=== PATIENT | female | born 1960 | race Caucasian/White ===

== ENCOUNTER 2020-04-06 11:58 | Emergency (ER) | payer BC ==
[~2020-04-06] VITALS: Ht 165.1 cm; Wt 88.5 kg
[2020-04-06] MEDS ORDERED: LISINOPRIL5 MG PO (12:15)
[2020-04-06] MEDS ORDERED: AMBIEN5 MG (12:15)
--- NOTE | 2020-04-06 17:45 | EKG ---
[facility] [address] [facility] [place] [address] Signed Normal sinus rhythm with sinus arrhythmia Minimal voltage criteria for LVH, may be normal variant Borderline ECG No previous ECGs available Confirmed by BUCKY FRANCIS MD ([id number]) on 04/06/2020 5:45:31 PM Electronically Signed By: BUCKY FRANCIS MD 04/06/20 1745 PATIENT NAME: ARIADNA GARRETT GUICHO Electrocardiogram DATE OF : 58 PHYSICIAN: BUCKY FRANCIS MD REPORT #: [id number] REPORT IS CONFIDENTIAL AND NOT TO BE RELEASED WITHOUT AUTHORIZATION
== END 2020-04-06 15:51 | disposition home or self-care (01) ==
LOC: ED 11:58
DX: R42 Dizziness and giddiness (principal); I10 Essential (primary) hypertension; Z88.8 Allergy status to other drugs, medicaments and biological substances; Z79.899 Other long term (current) drug therapy
CPT/HCPCS: 70450; 80053; 85025; 93005; 93010; 99284-25

== ENCOUNTER 2022-01-04 14:58 | Emergency (ER) | payer OTHER ==
[~2022-01-04] VITALS: Ht 152.4 cm; Wt 88.5 kg
[~2022-01-04 14:58] MED LIST: AMBIEN5 MG PO; LISINOPRIL5 MG PO
--- OUTSIDE RECORDS SUMMARY | 2022-01-04 15:00 | XMS ---
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 E.[place] VISIT COUNT (12 MO.) 1 [facility] TOTAL 1 NOTE: Visits indicate total known visits. ED/UCC VISIT TRACKING (12 MO.) 01/04/2022 14:58 [facility] OR TYPE: Emergency COMPLAINT: - EXTREMITY PAIN/INJURY INPATIENT VISIT TRACKING (12 MO.) No inpatient visits to display in this time frame [id number]
[2022-01-04] MEDS ORDERED: HYDROCODON-ACE1 EA10 PO (19:31)
[2022-01-06] MEDS ORDERED: LEXAPRO20 MG PO (11:20)
[2022-01-10] MEDS ORDERED: DILAUDID2 MG PO (10:44)
== END 2022-01-04 20:20 | disposition home or self-care (01) ==
LOC: ED 14:58
DX: S52.502A Unspecified fracture of the lower end of left radius, initial encounter for closed fracture (principal); S22.31XA Fracture of one rib, right side, initial encounter for closed fracture; I10 Essential (primary) hypertension; V43.52XA Car driver injured in collision with other type car in traffic accident, initial encounter; Z88.8 Allergy status to other drugs, medicaments and biological substances; Z79.899 Other long term (current) drug therapy
CPT/HCPCS: 25605; 36415; 71045; 71250; 73080; 73090; 73110; 74176; 80053; 81001; 83690; 84484; 85025; 85060; 85610; 85730; 99284-25; A9270; J2270; J7030

== ENCOUNTER 2022-01-06 16:49 | Observation (INO) | payer OTHER ==
[~2022-01-06] VITALS: Ht 152.4 cm; Wt 89.2 kg
[~2022-01-06 16:49] MED LIST changes: +HYDROCODON-ACE1 EA10 PO; +LEXAPRO20 MG PO
--- OUTSIDE RECORDS SUMMARY | 2022-01-06 16:52 | XMS ---
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 Josh VISIT COUNT (12 MO.) 2 [facility] TOTAL 2 NOTE: Visits indicate total known visits. ED/UCC VISIT TRACKING (12 MO.) 01/06/2022 16:50 [facility] OR TYPE: Emergency COMPLAINT: - CHEST PAIN 01/04/2022 14:[address] [facility] OR TYPE: Emergency COMPLAINT: - EXTREMITY PAIN/INJURY INPATIENT VISIT TRACKING (12 MO.) No inpatient visits to display in this time frame [id number]
[2022-01-06] MEDS ORDERED: LISINOPRIL-HCT1 EACH PO (17:34)
[2022-01-06] MEDS ORDERED: NORTRIPTYLINE H25 MG PO (17:34)
--- NOTE | 2022-01-06 22:45 | NUR ---
PT HAS ARRIVED TO THE FLOOR VIA STRETCHER, SBA PIOVT TO MEDICAL BED, LEFT ARM BRACE IS IN PLACE, VS AND BED WEIGHT TAKEN, WARM BLANKETS PROVIDED, RN IN FOR ASSESSMENT, BEDSIDE ITEMS AND CALL LIGHT IN REACH, NO FURTHER NEEDS AT THIS TIME
--- NOTE | 2022-01-06 22:45 | NUR ---
pt arrived from ed on stretcher, able to stand pivot to [facility] bed. left arm remains in sling, pt sensitive to position changes and reports increased pain from sternal fx when laying flat, improved when sitting upright. admission complete, pt oriented to room. iv fluids infusing as directed and iv site flushes easily. primary rn remains in room.
--- NOTE | 2022-01-06 23:30 | NUR ---
UP TO BR, SLOW, 2PA, L ARM IN SLING, IVF INFUSING, VOIDED QS CLEAR YELLOW URINE. BACK TO BED WITH ASSIST. CONCERNED ABOUT ANGLICAN UNDERGARMENTS. REASSURED. MEDICATED WITH MORPHINE 4MG PER 10/10 R RIB AND L ARM PAIN. RECEIVED AMBIEN SCHEDULED, WILL WAIT ON PAMELOR, ALERT AND ORIENTED IVF INFUSING L AC, SLIGHT EDEMA LANKLE, PT STATED SHE HAD LYMPHEDEMA, SCDS IN PLACE. PT AWARE OF NPO AFTER MIDNIGHT
--- NOTE | 2022-01-07 01:33 | NUR ---
Used call light, up to br, voided, QS clear yellow urine. IVf infusing w/o problems, c/o mild L arm pain, arm in sling, back to bed, tolerated well, 1PA, c/o insomnia, ambien given at this time with small amount of water, Pt aware of NPO status. has been NPO since midnight. L arm elevated in pillows.
--- NOTE | 2022-01-07 04:16 | NUR ---
pt used call light, up to br 2 PA, voided, back to bed, sling L arm in place, tolerated fait, c/o 8/10 pain, medicated with Morphine 4mg IV. ice to L ches L arm, sling in place, scds in place, IVF infusing w/o problems,
--- NOTE | 2022-01-07 05:45 | NUR ---
pt on room air, NPO since midnight, L arm sling in place, ice to L chest and L arm. 1-2PA when standing up to Br, voiding QS, tolerated fair, has been medicated with Morphine 4mg IV with good pain relief. edema to L LE chronic SCDS in place. uses call light, alert and oriented. pleasant and cooperative
--- NOTE | 2022-01-07 06:39 | NUR ---
DR DOMINGUEZ IN TO SEE PT. PT WAS SCHEDULED TO HAVE OUTPT SURGERY PRIOR TO ADMIT.
--- NOTE | 2022-01-07 06:58 | NUR ---
C/O 6/10 L ARM AND R SIDED PAIN, MEDICATED WITH MORPHINE 4MG iv
--- NOTE | 2022-01-07 07:00 | NUR ---
bedside report from janice, dr nava was here - plan for sx today.
--- NOTE | 2022-01-07 08:16 | NUR ---
PT GIVEN PO TYLENOL FOR C/O BREAKTHROUGH PAIN AT [place], ASSESSMENT COMPLETE - PT NPO CMS ON LEFT HAND WNL ARM IN SLING - LET PT KNOW I WOULD BE CALLING TO CLARIFY PLAN OF CARE FOR TODAY.
--- NOTE | 2022-01-07 08:18 | NUR ---
PATIENT IN BED FOR MEAL, VISITING WITH SPOUSE. THE SPOUSE HELPED PT TO RESTROOM. AM CARE COMPLETED. REQUESTING PAIN MEDICINE, NURSE NOTIFIED. PT HAS NO OTHER NEEDS AT THIS TIME. CALL LIGTH WITHIN REACH.
--- NOTE | 2022-01-07 08:40 | NUR ---
RN CALLED DR DOMINGUEZ - HE IS NOW AWARE OF HER CONCERNS FOR HER PLAN OF CARE AND QUESTIONS ABOUT GOING HOME AND COMING BACK OUT PT. HE SAID ADVANCE DIET NOW AND HE WILL BE IN NEXT AFTER SURGERY TO TALK WITH HER. 0845: RN IN TO DISCUSS DR DOMINGUEZ PLAN. DR ROSALES IN ROOM - ADVISED PT AND DR ROSALES OF DR DOMINGUEZ PLAN TO NOT DO SURGERY TODAY, AND HE WOULD BE IN TO TALK TO THEM - DR ROSALES WILL CONNECT WITH ANGELICA AND PT WANTS TO WAIT TO EAT/DRINK UNTIL SHE TALKS TO DR DOMINGUEZ THIS AM. MACHINE SET UP OPERATOR NOTIFIED OF CHANGES AND PT REQUESTS.
--- NOTE | 2022-01-07 09:33 | NUR ---
PATIENT BACK IN BED AFTER USING RESTROOM. VITAL SIGNS AND I/O'S COMPLETED. PT HAS NO OTHER NEEDS AT THIS TIME. CALL LIGHT WITHIN REACH.
[2022-01-07] MEDS ORDERED: TRANSDERM-SCOP1 EACH TD (10:03)
--- NOTE | 2022-01-07 10:03 | NUR ---
MED REC COMPLETE
--- NOTE | 2022-01-07 10:10 | NUR ---
THIS RN JUST SPOKE WITH PT TO ORDER FOOD AND COORDINATE PLAN OF CARE FOR THE DAY. SHE IS HAPPY WITH SPEAKING RECENTLY WITH DR. DOMINGUEZ AND PLAN TO DC TOMORROW AFTER LABS AND RETURN ON MONDAY FOR OUTPT SX IF LABS ABD PAIN ARE WNL. GRILLED TURKEY CHE[employer] SALAD AND PEPSI ORDERD. PT DENIES OTHER NEEDS. HAPPY WITH PLAN COMPROMISE.
--- NOTE | 2022-01-07 10:46 | NUR ---
AFTER THIS RN MET WITH PT TO ASSESS PAIN AND GIVE MORE MORPHINE PLANNED EARLIER - PT STATED THAT DR DOMINGUEZ VERBALLY TOLD HER SHE WOULD NO LONGER BE TAKING TYLENOL AND MORPINE - NO NEW ORDERS - THIS RN PLACED CALL TO DR. DOMINGUEZ AND ADDRESSED PT CONCERN - NEW VERBAL ORDERS TO GIVE DILAUDID PO PRIMARY PAIN MED AND DC TYLENOL. UPDATED THAT PT WAS EATING WELL.
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
--- NOTE | 2022-01-07 13:40 | NUR ---
PT SORE FROM MOVEMENT - IV MS GIVEN
--- NOTE | 2022-01-07 14:50 | NUR ---
PATIENT IN BED VISITING WITH FAMILY MEMBERS. VITALS AND I/O'S COMPLETED. PT HAS NO OTHER NEEDS AT THIS TIME. CALL LIGHT WITHIN REACH.
--- NOTE | 2022-01-07 15:20 | NUR ---
CALL LIGHT ANSWERED. PT BACK TO BED FROM BATHROOM. PT L. ARM SUPPORTED W PILLOW AND SLING. WARM BLANKET PUT ON PTS FEET. NO FURTHER NEEDS. FAMILY IN ROOM. CALL LIGHT WITHIN REACH.
--- NOTE | 2022-01-07 15:24 | NUR ---
PT AMB TO BR WITH RN TO VOID - REPORT THAT SHE IS FEELING BETTER AFTER MS IV, SISTERS ARE HERE TO VISIT - NEW ICE PACK TO LEFT ARM - [facility] WNL.
--- NOTE | 2022-01-07 17:22 | NUR ---
REPORT RECEIVED FROM ABDULLAHI RN AND PT. CARE RESUMED.
--- NOTE | 2022-01-07 17:53 | NUR ---
PATIENT LAYING IN BED, VITALS AND I/O'S COMPLETED. PT HAS NO OTHER NEEDS AT THIS TIME. CALL LIGHT WITHIN REACH.
--- NOTE | 2022-01-07 17:53 | NUR ---
ROUNDING ON PT. SHE C/O STERNAL PAIN. ADMIN PO DILAUDID. DISCUSSED PAIN MANAGEMENT.
--- NOTE | 2022-01-07 19:00 | NUR ---
BEDSIDE HANDOFF REPORT RECEIVED FROM DAY SHIFT RN. PT RATING PAIN 9/10, REQUESTING PAIN MEDICATION, AMR RN TO GIVE MORPHINE. PT DENIES OTHER NEEDS AT THIS TIME.
--- NOTE | 2022-01-07 19:34 | NUR ---
PT RECEIVED AMBIEN LAST NIGHT, NO DOSE AVAILABLE FOR THIS EVENING, DISCUSS WITH DR. ROSALES, TELEPHONE ORDER FOR DOSE FOR TONIGHT.
--- NOTE | 2022-01-07 20:09 | NUR ---
PT WITH COMPLAINT OF PAIN IN LEFT WRIST, STATES THE CAST FEELS LIKE ITS SQUEEZING IN ONE AREA. CMS INTACT, CAP REFILL 2 SECONDS. DIMA BANDAGE REMOVED, ARM ELEVATED ON SLING, ICE PACK IN PLACE. PT REQUESTING PAIN MEDICATION WHEN AVAILABLE. PT DENIES OTHER NEEDS AT THIS TIME.
--- NOTE | 2022-01-07 20:43 | NUR ---
PT UTILIZES CALL LIGHT, REPORTS PAIN AT IV SITE. IV INFUSION STOPPED. IV FLUSHED WITH 10 ML NS, WNL, BRISK BLOOD RETURN NOTED. PT DENIES PAIN DURING FLUSH. REDNESS NOTED ALONG IV DRESSING. PT DENEIS ADHESIVE ALLERGY. COBAN SECURING IV SITE REMOVED. PT POINTS TO AREA OF STABBING AT HUB OF IV. 2X2 GAUZE PLACED UNDER WINGS/HUB OF IV. PT STATES THIS RELIEVES DISCOMFORT. PT UP TO BATHROOM AND BACK TO BED WITH SBA. PT'S FAMILY ARRIVES AT BEDSIDE WITH DINNER FOR PT. ICE CHIPS PROVIDED PER PT REQUEST. FURTHER NEEDS DENIED AT THIS TIME. CALL LIGHT IN REACH.
--- NOTE | 2022-01-07 21:30 | NUR ---
PT RESTING IN BED, FAMILY IN ROOM. PT ON ROOM AIR, LUNG SOUNDS CLEAR, DENIES SOB. PT RATES PAIN 7/10, GIVEN 1MG PO DILAUDID. PT DENIES NAUSEA, BOWEL TONES ACTIVE. IV FLUIDS INFUSING NS AT 150ML/HR. PT LEFT ARM IN SPLINT, DIMA BANDAGE REAPPLIED. VSS. PT ASSISTED TO BATHROOM AND THEN BACK TO BED, ARM ELEVATED ON PILLOW, ICE PACK APPLIED. PT DENIES OTHER NEEDS AT THIS TIME.
--- NOTE | 2022-01-07 23:43 | NUR ---
PT ASSISTED TO BATHROOM, SBA.
--- NOTE | 2022-01-08 03:33 | NUR ---
PT WALKING IN [place]OMAS WITH ELEVATOR OPERATOR SERVICE.
--- NOTE | 2022-01-08 03:53 | NUR ---
PT COMPLETED WALK IN [place]OMAS, PT REPORTING PAIN 9/10 TO STERNUM AND RIBS, REQUESTING PAIN MEDICATION. GIVEN 4MG IV MORPHINE. PT DENIES OTHER NEEDS AT THIS TIME.
--- NOTE | 2022-01-08 07:20 | NUR ---
RECIEVED SHIFT REPORT. PT AWAKE IN BED REQUESTING PAIN MEDS. CALL LIGHT WITHIN REACH.
--- NOTE | 2022-01-08 08:00 | NUR ---
MORNING ASSESSMENT COMPLETE. PT COMPLAINS OF PAIN 9/10 IN LEFT ARM AND STERNUM. PRN DILAUDID ADMINISTERED PER EMAR. LEFT ARM ELEVATED, WRAPPED IN DIMA WRAP. CMS INTACT. ICE APPLIED TO LEFT ARM AND STERNUM. PT LUNGS CLEAR. HR REGULAR. LLE TRACE EDEMA NOTED. SCDS IN PLACE. IVF RUNNING AT 150 ML/HR PER EMAR. DENIES FURTHER NEEDS AT THIS TIME. CALL LIGHT WITHIN REACH.
--- NOTE | 2022-01-08 08:36 | NUR ---
DR DOMINGUEZ CALLED ON UPDATE ON LABS. LABS GIVEN. NO NEW ORDERS AT THIS TIME.
--- NOTE | 2022-01-08 08:49 | NUR ---
PATIENT IN BED FOR MEAL. AM CARE COMPLETED. PT HAD COMPLAINTS OF PAIN, NURSE NOTIFIED, CALL LIGHT WITHIN REACH.
--- NOTE | 2022-01-08 09:30 | NUR ---
PT LAYING IN BED. AT BEDSIDE. CALL LIGHT WITHIN REACH.
--- NOTE | 2022-01-08 10:20 | NUR ---
PATIENT IN BED AFTER MEAL AND SHOWER. VITALS AND I/O'S COMPLETED. PT HAS NO OTHER NEEDS AT THIS TIME. CALL LIGHT WITHIN REACH.
--- NOTE | 2022-01-08 11:45 | NUR ---
PT IN BATHROOM, IN TO ASSIST. PT STATED PAIN LEVEL 8/10 AND REQUESTED IF PAIN MEDICATIONS. PRN DILAUDID GIVEN PER EMAR. DENIES FURTHER NEEDS AT THIS TIME.
--- NOTE | 2022-01-09 17:15 | EKG ---
[facility] [address] [place] [address] Signed Normal sinus rhythm Minimal voltage criteria for LVH, may be normal variant ( R in aVL ) Inferior infarct , age undetermined Abnormal ECG When compared with ECG of 06-APR-2020 13:19, Inferior infarct is now present Confirmed by Ebonie Rosales MD () on 01/09/2022 5:15:43 PM Electronically Signed By: EBONIE ROSALES MD 01/09/22 1715 PATIENT NAME: ARIADNA GARRETT Electrocardiogram DATE OF : 58 PHYSICIAN: EBONIE ROSALES MD REPORT #: [id number] REPORT IS CONFIDENTIAL AND NOT TO BE RELEASED WITHOUT AUTHORIZATION
== END 2022-01-08 12:40 | disposition home or self-care (01) ==
LOC: ED 16:49 → MS 16:51
PROVIDERS: ADMIT Family Medicine; ATTEND Family Medicine
DX: N17.9 Acute kidney failure, unspecified (principal); S62.102A Fracture of unspecified carpal bone, left wrist, initial encounter for closed fracture; S22.31XA Fracture of one rib, right side, initial encounter for closed fracture; S22.20XA Unspecified fracture of sternum, initial encounter for closed fracture; E86.0 Dehydration; I10 Essential (primary) hypertension; J98.11 Atelectasis; R42 Dizziness and giddiness; R79.89 Other specified abnormal findings of blood chemistry; G47.00 Insomnia, unspecified; V49.9XXA Car occupant (driver) (passenger) injured in unspecified traffic accident, initial encounter; Z88.5 Allergy status to narcotic agent; Z90.49 Acquired absence of other specified parts of digestive tract; Z91.040 Latex allergy status
CPT/HCPCS: 36415; 71045; 71120; 80048; 80053; 82553; 83735; 84484; 85025; 93005; 93010; 96374; 96376; 99285-25; A9270; C9803; G0378; J2270; J7030

== ENCOUNTER 2022-01-10 10:07 | Day surgery (SDC) | payer OTHER ==
--- NOTE | 2022-01-06 11:21 | NUR ---
09:00 PHONE CALL TO PATIENT DUE TO SHE MISSED COVID TEST AND PRE-ADMIT APPOINTMANT. TALKED WITH DUE TO PT HAD A BAD NIGHT WITH PAIN AND MEDICATIONS. EXPLAINED THAT SHE COULD COME AT 7AM FOR COVID SCREENING ON ARRIVAL FOR SURGERY AND THAT I WOULD TALK WITH DR DOMINGUEZ STAFF ABOUT PAIN MEDICATIONS AND SEE IF WE COULD GET THAT CHANGED. 09:[address] DOMINGUEZ OFFICE LEFT MESSAGE WITH OFFICE NURSE ABOUT ISSUES WITH PAIN MEDICATIONS 11:10 PHONE CALL TO PATIENT, SHE ANSWERED AND WE COMPLETED PRE-ADMIT AND THEN ASKED IF DR DOMINGUEZ OFFICE HAS GOTTEN IN TOUCH WITH THEM AND THEY HAD. REMINDED PATIENT NOT TO EAT OR DRINK AFTER MIDNIGHT AND THAT SHE WOULD NEED TO BE AT THE HOSPITAL AT 7:00AM AND WOULD HAVE HER COVID SCREENING COMPLETED THEN.
--- NOTE | 2022-01-06 11:26 | NUR ---
PT ALSO HAD COVID IN August WITH COLD LIKE S/S TOOK THE 5 DAYS OF MEDICATION AND HAS HAD NO PROBLEMS
[~2022-01-10] VITALS: Ht 152.4 cm; Wt 88.5 kg
[~2022-01-10 10:07] MED LIST changes: +LISINOPRIL-HCT1 EACH PO; +NORTRIPTYLINE H25 MG PO; +TRANSDERM-SCOP1 EACH TD
[2022-01-10] MEDS ORDERED: DILAUDID2 MG PO ×2 (10:44)
--- NOTE | 2022-01-10 15:20 | NUR ---
01/10/22 1520 Lori Ardon 1509- PT ARRIVES TO PACU TALKING. PT REPORTS NO PAIN OR NAUSEA. RESP EVEN AND UNLABORED. OXYGEN SAT MID 90'S ON 6L VIA MASK. PT ENCOURAGED TO COUGH AND TAKE DEEP BREATHS BY MECHANICAL LEAD. PT IS ABLE TO DO THIS. PT'S LEFT FOREARM ELEVATED AND ICE PACK APPLIED. 1516- PT PLACED ON AN EAR PROBE FOR OXYGEN SAT THE PT HAS DARK FINGER NAIL KENYAN ON 1519- OXYGEN TITRATED OFF.
--- NOTE | 2022-01-10 15:50 | NUR ---
PATIENT BACK TO ROOM 4 FROM PACU ON RA. RECEIVED REPORT FROM POLINA GOYAL. RESP EVEN AND UNLABORED. RATES PAIN 0/10 AND DENIES NAUSEA. DRESSING CLEAN, DRY, AND INTACT. LEFT ARM IN SLING WITH ICE PACK IN PLACE. PATIENT IS EATING ICE CHIPS. PROVIDED PATIENT WITH PUDDING. AT BEDSIDE. CALL LIGHT WITHIN REACH.
--- NOTE | 2022-01-10 16:50 | NUR ---
1650-PATIENT LAYING IN BED AWAKE. RESP EVEN AND UNLABORED. DENIES PAIN AND NAUSEA. DRESSING CLEAN, DRY, AND INTACT. ARM IN SLING AND ICE PACK IN PLACE. IN ROOM. PATIENT READY TO GO HOME AND WILL GET DRESSED.
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
== END 2022-01-10 17:10 | disposition home or self-care (01) ==
LOC: DS 10:07
PROVIDERS: ATTEND Specialist
PROC: 0PS Upper Bones, Reposition (ICD-10-PCS; principal; 2022-01-10 13:30)
DX: S52.552A Other extraarticular fracture of lower end of left radius, initial encounter for closed fracture (principal); M85.80 Other specified disorders of bone density and structure, unspecified site; I10 Essential (primary) hypertension; V89.2XXA Person injured in unspecified motor-vehicle accident, traffic, initial encounter; Z20.822 Contact with and (suspected) exposure to COVID-19
CPT/HCPCS: 36415; 64417; 73100; 76942; 80053; C1713; C9803; J0690; J1100; J2001; J2250; J2405; J2704; J2795; J3010; U0003

== ENCOUNTER 2022-01-29 11:23 | Emergency (ER) | payer OTHER ==
[~2022-01-29] VITALS: Ht 167.6 cm; Wt 91.2 kg
[~2022-01-29 11:23] MED LIST changes: +DILAUDID2 MG PO
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
== END 2022-01-29 13:03 | disposition home or self-care (01) ==
LOC: ED 11:23
DX: T84.038A Mechanical loosening of other internal prosthetic joint, initial encounter (principal); Z88.5 Allergy status to narcotic agent; Z88.8 Allergy status to other drugs, medicaments and biological substances; Z91.040 Latex allergy status; Z79.899 Other long term (current) drug therapy; X58.XXXA Exposure to other specified factors, initial encounter
CPT/HCPCS: 99283

== ENCOUNTER 2022-07-03 17:56 | Emergency (ER) | payer OTHER ==
[~2022-07-03] VITALS: Ht 162.6 cm; Wt 89.4 kg
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
[2022-07-03] MEDS ORDERED: HYDROCODON-ACE1 EA10 PO (19:46)
[2022-07-03] MEDS ORDERED: PREDNISONE20 MG PO (19:46)
== END 2022-07-03 20:10 | disposition home or self-care (01) ==
LOC: ED 17:56
DX: L51.9 Erythema multiforme, unspecified (principal); I10 Essential (primary) hypertension; E11.9 Type 2 diabetes mellitus without complications; Z91.040 Latex allergy status; Z88.8 Allergy status to other drugs, medicaments and biological substances; Z79.899 Other long term (current) drug therapy
CPT/HCPCS: 36415; 51701; 80053; 81001; 81003; 85025; 99283-25; A9270; J1200; J2930

== ENCOUNTER 2022-07-04 21:21 | Emergency (ER) | payer OTHER ==
[~2022-07-04] VITALS: Ht 162.6 cm; Wt 89.0 kg
[~2022-07-04 21:21] MED LIST changes: +PREDNISONE20 MG PO
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
== END 2022-07-04 22:08 | disposition home or self-care (01) ==
LOC: ED 21:21
DX: L98.499 Non-pressure chronic ulcer of skin of other sites with unspecified severity (principal); I10 Essential (primary) hypertension; E11.9 Type 2 diabetes mellitus without complications; Z88.2 Allergy status to sulfonamides; Z88.8 Allergy status to other drugs, medicaments and biological substances; Z88.1 Allergy status to other antibiotic agents; Z91.040 Latex allergy status; Z79.899 Other long term (current) drug therapy; Z79.52 Long term (current) use of systemic steroids
CPT/HCPCS: 99283

== ENCOUNTER 2023-02-01 13:07 | Emergency (ER) | payer OTHER ==
[~2023-02-01] VITALS: Ht 162.6 cm; Wt 85.1 kg
--- OUTSIDE RECORDS SUMMARY | 2023-02-01 13:10 | XMS ---
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 PHONE: Unknown Rachel has no Care Guidelines for this patient. Josh VISIT COUNT (12 MO.) [facility] TOTAL 3 NOTE: Visits indicate total known visits. 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 [place] TYPE: Emergency COMPLAINT: - ALLERGIC REACTION DIAGNOSES: - Allergy status to other drugs, medicaments and biological substances - Erythema multiforme, unspecified - Essential (primary) hypertension - Latex allergy status - Other mcc (current) drug therapy - Rash and other nonspecific skin eruption - Type 2 diabetes mellitus without complications INPATIENT VISIT TRACKING (12 MO.) No inpatient visits to display in this time frame [email or web address]
[2023-02-01] MEDS ORDERED: JARDIANCE10 MG PO (13:39)
[2023-02-01] MEDS ORDERED: AMLODIPINE BESYL5 MG PO (13:39)
[2023-02-01] MEDS ORDERED: VITAMIN D21250 MCG PO (13:39)
[2023-02-01] MEDS ORDERED: LISINOPRIL20 MG PO (13:39)
[2023-02-01] MEDS ORDERED: GABAPENTIN100 MG PO (16:30)
[2023-02-01 17:11] VITALS: BP 121/72
== END 2023-02-01 17:12 | disposition home or self-care (01) ==
LOC: ED 13:07
DX: M79.671 Pain in right foot (principal); M79.672 Pain in left foot; S92.514A Nondisplaced fracture of proximal phalanx of right lesser toe(s), initial encounter for closed fracture; X58.XXXA Exposure to other specified factors, initial encounter; I10 Essential (primary) hypertension; E11.9 Type 2 diabetes mellitus without complications; Z88.2 Allergy status to sulfonamides; Z88.1 Allergy status to other antibiotic agents; Z91.040 Latex allergy status; Z88.5 Allergy status to narcotic agent; Z79.899 Other long term (current) drug therapy
CPT/HCPCS: 73630; 99283-25

== ENCOUNTER 2023-03-23 13:58 | Emergency (ER) | payer OTHER ==
[~2023-03-23] VITALS: Ht 162.6 cm; Wt 84.8 kg
[~2023-03-23 13:58] MED LIST changes: +AMLODIPINE BESYL5 MG PO; +GABAPENTIN100 MG PO; +JARDIANCE10 MG PO; +LISINOPRIL20 MG PO; +VITAMIN D21250 MCG PO
[2023-03-23 16:13] LABS: HEMATOCRIT 41.4 % (35.0-50.0)
[2023-03-23 16:16] LABS: HEMOGLOBIN 13.2 g/dL (12.0-18.0); MCH 28.6 (27-36); MCHC 31.9 g/dl (30-36); MCV 89.5 fl (81-99); PLATELET COUNT 416 K/uL (140-440); RBC 4.63 M/ul (4.3-5.7); RDW 17.1 (10.5-15.0)
[2023-03-23 16:21] LABS: ALBUMIN 3.8 g/dL (3.4-5.0); ALBUMIN/GLOBULIN RATIO 0.97 (1.1-2.4); ANION GAP 19.8 (7-21); BILIRUBIN, TOTAL 0.3 ng/dL (0.2-1.0); BUN/CREATININE RATIO 16.75 (6.0-28.6); CREATININE, SERUM 1.97 mg/dL (0.55-1.02); POTASSIUM 3.8 mmol/L (3.5-5.1); PROTEIN, TOTAL 7.7 g/dL (6.4-8.2)
[2023-03-23 16:28] LABS: BANDS, MANUAL DIFF 1; LYMPHOCYTES, MANUAL DIFF 11; MONOCYTES, MANUAL DIFF 6; NEUTROPHILS, MANUAL DIFF 82
[2023-03-23 16:32] LABS: BILIRUBIN, URINE NEGATIVE (negative); BLOOD/HGB, URINE MODERATE (Negative); KETONE, URINE NEGATIVE (Negative); LEUK ESTERASE, URINE NEGATIVE (negative); NITRITE, URINE POSITIVE (negative); PH, URINE 5.5 (5-7)
[2023-03-23 16:39] LABS: EPITHELIAL CELLS, URINE SQUAMOUS 2+ /lpf (0-1+)
[2023-03-23 16:40] LABS: CRYSTALS, URINE NONE SEEN (0-1+)
[2023-03-23 16:41] LABS: CASTS, URINE NONE SEEN \\lpf; COLLECTION TYPE, URINE CLEAN CATCH; REFLEX CULTURE, URINE No (No)
[2023-03-23 16:42] LABS: BACTERIA, URINE 3+ /hpf (negative)
[2023-03-23 17:54] LABS: BILIRUBIN, URINE NEGATIVE (negative); BLOOD/HGB, URINE LARGE (Negative); KETONE, URINE NEGATIVE (Negative); LEUK ESTERASE, URINE NEGATIVE (negative); NITRITE, URINE POSITIVE (negative); PH, URINE 5.5 (5-7)
[2023-03-23 18:00] LABS: BACTERIA, URINE 3+ /hpf (negative); CASTS, URINE NONE SEEN \\lpf; COLLECTION TYPE, URINE CATH; CRYSTALS, URINE NONE SEEN (0-1+); EPITHELIAL CELLS, URINE NONE SEEN /lpf (0-1+); REFLEX CULTURE, URINE Yes (No)
[2023-03-23] MEDS ORDERED: FLOMAX0.4 MG PO (19:23)
[2023-03-23] MEDS ORDERED: HYDROCODON-ACE1 EA11 PO (19:23)
[2023-03-23] MEDS ORDERED: ONDANSETRON ODT8 MG PO (19:23)
[2023-03-23] MEDS ORDERED: CEFDINIR300 MG PO (19:23)
[2023-03-23 19:34] VITALS: BP 143/79
== END 2023-03-23 19:36 | disposition home or self-care (01) ==
LOC: ED 13:58
PROVIDERS: Emergency Medicine
DX: N13.2 Hydronephrosis with renal and ureteral calculous obstruction (principal); N39.0 Urinary tract infection, site not specified; I10 Essential (primary) hypertension; E11.9 Type 2 diabetes mellitus without complications; Z79.84 Long term (current) use of oral hypoglycemic drugs; Z79.899 Other long term (current) drug therapy; Z88.1 Allergy status to other antibiotic agents; Z88.2 Allergy status to sulfonamides; Z88.8 Allergy status to other drugs, medicaments and biological substances; Z91.040 Latex allergy status
CPT/HCPCS: 36415; 74176; 80053; 81001; 85025; 87088; 96361; 96374; 96375; 99284-25; J0696; J1170; J1885; J2405; J7030

== ENCOUNTER 2024-03-02 00:13 | Emergency (ER) | payer OTHER ==
[~2024-03-02] VITALS: Ht 162.6 cm; Wt 82.7 kg
[~2024-03-02 00:13] MED LIST changes: +CEFDINIR300 MG PO; +FLOMAX0.4 MG PO; +HYDROCODON-ACE1 EA11 PO; +HYDROXYZINE HCL25 MG PO; +LOMOTIL TABLET1 EACH PO; +ONDANSETRON ODT8 MG PO
[2024-03-02] MEDS ORDERED: LIDOCAINE HCL 4% 1 EACH PATCH TD ONE (00:45)
[2024-03-02] MEDS ORDERED: LIDODERM1 EACH TOP (00:50)
[2024-03-02] MEDS ORDERED: HYDROCODONE BIT/ACETAMINOPHEN 5/325 MG 1 TAB HOME.PACK PO ONE (01:00)
[2024-03-02 01:13] VITALS: BP 141/78
[2024-03-02] MEDS ORDERED: LIDOCAINE PATCH REMOVAL 1 EA TD SCH (21:00)
== END 2024-03-02 01:13 | disposition home or self-care (01) ==
LOC: ED 00:13
DX: S20.211A Contusion of right front wall of thorax, initial encounter (principal); X58.XXXA Exposure to other specified factors, initial encounter; I10 Essential (primary) hypertension; Z88.2 Allergy status to sulfonamides; Z88.1 Allergy status to other antibiotic agents; Z88.8 Allergy status to other drugs, medicaments and biological substances; Z91.040 Latex allergy status; Z79.899 Other long term (current) drug therapy
CPT/HCPCS: 71045; 94667; 99283-25; A9270

== ENCOUNTER 2024-07-20 13:16 | Emergency (ER) | payer OTHER ==
[~2024-07-20] VITALS: Ht 162.6 cm; Wt 80.2 kg
[~2024-07-20 13:16] MED LIST changes: +LIDODERM1 EACH TOP
[2024-07-20] MEDS ORDERED: DAPAGLIFLOZIN5 MG PO (15:13)
[2024-07-20 15:36] VITALS: BP 107/65
== END 2024-07-20 15:36 | disposition home or self-care (01) ==
LOC: ED 13:16
DX: S63.502A Unspecified sprain of left wrist, initial encounter (principal); I10 Essential (primary) hypertension; Z88.2 Allergy status to sulfonamides; Z91.040 Latex allergy status; Z79.899 Other long term (current) drug therapy; X50.9XXA Other and unspecified overexertion or strenuous movements or postures, initial encounter
CPT/HCPCS: 73110; 99283